=== PATIENT | male | born 1995 | race Caucasian/White ===

== ENCOUNTER 2017-03-19 23:51 | Emergency (ER) | payer OTHER ==
[2017-03-20 00:44] VITALS: TEMP 99.8; BMI 24.0
[2017-03-20] MEDS ORDERED: KETOROLAC TROMETHAMINE 15 MG/ML VIAL IM ONE (02:47)
[2017-03-20] MEDS ORDERED: KETOROLAC TROMETHAMINE 30 MG/1 ML VIAL ONE (02:58)
--- NOTE | 2017-03-20 03:28 | PDOC ---
History of Present Illness - General Chief Complaint: Sore Throat Stated Complaint: COLD SYMPTOMS Time Seen by Provider: 03/20/17 02:34 Past History - Past Medical History Allergies/Adverse Reactions: Allergies Allergy/AdvReac Type Severity Reaction Status Date / Time No Known Allergies Allergy Verified 03/20/17 00:40 Home Medications: Ambulatory Orders Amoxicillin - [Amoxicillin 875mg Tablet -] 875 mg PO BID #14 tab 03/20/17 - Suicide/Smoking/Psychosocial Hx Smoking History: Never smoked Have you smoked in the past 12 months: No Information on smoking cessation initiated: No Hx Alcohol Use: No Drug/Substance Use Hx: No *Physical Exam - Vital Signs Last Vital Signs Temp Pulse Resp BP Pulse Ox 99.8 F H 102 H 14 135/89 95 03/20/17 00:40 03/20/17 00:40 03/20/17 00:40 03/20/17 00:40 03/20/17 00:40 ED Treatment Course - LABORATORY CBC & Chemistry Diagram: 03/20/17 04:23 03/20/17 04:23 - Medications Given in the ED: ED Medications Discontinued Medications Generic Name Dose Route Start Last Admin Trade Name Freq PRN Reason Stop Dose Admin Ketorolac Tromethamine 30 mg 03/20/17 02:47 03/20/17 03:02 Toradol Injection - IM 03/20/17 02:48 30 mg ONCE ONE Administration Medical Decision Making - Medical Decision Making 03/20/17 06:56 21-year-old male with a history of recurrent strep pharyngitis presents with strep pharyngitis. Rapid strep is positive. Patient given Toradol and amoxicillin. Upon rechecking the vitals for discharge, the patient stood up and reported feeling lightheaded. His blood pressure at the time was found to be 67/ 44, heart rate 98 and afebrile. An IV was placed immediately in the patient was given fluids and labs and blood cultures were checked. Labs remarkable for a white count of 19, likely due to strep throat. Chest x-ray was clear on my read. Blood cultures are still pending. After 1.5 L of fluid the patient's vitals at rest and while ambulating are within normal limits with repeated blood pressure reads greater than the 110s systolic. The patient reports feeling much better. Encouraged to stay hydrated, follow-up with Dr. Briones as soon as possible and see his primary doctor within 1-2 days. I discussed the physical exam findings, ancillary test results and final diagnoses with the patient. I answered all of the patient's questions. The patient was satisfied with the care received and felt comfortable with the discharge plan and treatment plan. The patient will call their primary care physician within 24 hours to arrange follow-up and will return to the Emergency Department with any new, persistent or worsening symptoms. *DC/Admit/Observation/Transfer Diagnosis at time of Disposition: Strep pharyngitis - Discharge Dispostion Disposition: HOME Condition at time of disposition: Stable Admit: No - Prescriptions Prescriptions: Amoxicillin - [Amoxicillin 875mg Tablet -] 875 mg PO BID #14 tab - Referrals Referrals: Mike Parsons [Primary Care Provider] - Alan Briones MD [Staff Physician] - - Patient Instructions Printed Discharge Instructions: DI for Strep Throat Additional Instructions: Take your antibiotics as prescribed. You can take ibuprofen 600mg every 6 hours for pain and inflammation. Call Dr. Briones's office for follow up with the content specialist within 1 week. Follow up with your primary care doctor within 1-2 days. Return to the emergency department if you have any new, worsening or concerning symptoms. - Post Discharge Activity - Attestations Physician Attestion: 03/20/17 07:00 I, Dr. Joaquim Marie MD, attest that this document has been prepared under my direction and personally reviewed by me in its entirety. I further attest, that it accurately reflects all work, treatment, procedures and medical decision -making performed by me.
[2017-03-20] MEDS ORDERED: AMOXICILLIN 500 MG CAPSULE (FP) PO ONE (03:47)
[2017-03-20] MEDS ORDERED: SODIUM CHLORIDE 0.9% 500 ML INFUS.BAG IV ONE (03:57)
[2017-03-20] MEDS ORDERED: AMOXICILLIN 500 MG CAPSULE (FP) ONE (04:26)
[2017-03-20 04:38] LABS: BASOPHIL 0.2 % (0-2.0); EOSINOPHIL 0.3 % (0-4.5); MCH 29.1 pg (25.7-33.7); MCHC 33.2 g/dl (32.0-35.9); MEAN CELL VOLUME 87.6 fl (80-96); MEAN PLT VOLUME 9.3 fl (7.5-11.1); NEUTROPHILS 85.4 % (42.8-82.8); PLATELET COUNT 199 K/MM3 (134-434); RDW 13.2 % (11.9-15.9)
[2017-03-20 05:19] LABS: ALBUMIN 3.9 g/dl (3.4-5.0); ALK PHOS 92 U/L (45-117); ANION GAP 6 (8-16); BILIRUBIN,TOTAL 0.7 mg/dL (0.2-1.0); CALCIUM 8.3 mg/dL (8.5-10.1); CO2 28 mmol/L (21-32); CREATININE 1.4 mg/dL (0.7-1.3); GLUCOSE,RANDOM 112 mg/dL (74-106); SGOT/AST 86 U/L (15-37); SGPT/ALT 66 U/L (12-78); TOT PROT 7.6 g/dl (6.4-8.2)
[2017-03-20 06:52] VITALS: BP 134/68; PULSE 76
== END 2017-03-20 07:18 | disposition home or self-care (01) ==
LOC: JER 23:51
PROC: 3E0233Z Introduction of Anti-inflammatory into Muscle, Percutaneous Approach (ICD-10-PCS; principal; 2017-03-19)
PROC: 3E0337Z Introduction of Electrolytic and Water Balance Substance into Peripheral Vein, Percutaneous Approach (ICD-10-PCS; 2017-03-19)
DX: J02.0 Streptococcal pharyngitis (principal)
CPT/HCPCS: 36415; 71020-TC; 80053; 83605; 85025; 87040; 87070; 87430; 96360; 96372; 99281-25; 99282-25

== ENCOUNTER 2017-05-15 09:44 | Emergency (ER) | payer OTHER ==
[2017-05-15 10:17] VITALS: BP 108/71; PULSE 87; TEMP 97.8; BMI 22.9
[2017-05-15] MEDS ORDERED: KETOROLAC TROMETHAMINE 60 MG/2 ML VIAL IM ONE (10:44)
[2017-05-15] MEDS ORDERED: KETOROLAC TROMETHAMINE 60 MG/2 ML VIAL ONE (10:48)
--- NOTE | 2017-05-15 10:58 | PDOC ---
History of Present Illness - General Chief Complaint: Pain, Acute Stated Complaint: NAUSEA/VOMITING, FEVER, SORE THROAT Time Seen by Provider: 05/15/17 10:30 History Source: Patient Exam Limitations: No Limitations - History of Present Illness Initial Comments: CHIEF COMPLAINT: 21 y/o afebrile male c/o fever, sore throat and vomiting since last night. HISTORY OF PRESENT ILLNESS: The patient admits these symptoms happen frequently to him and normally it's strep throat. He states he has seen an ENT that is giving him a vaccine? to prevent strep throat in the future. He states he took tylenol and motrin last night but nothing this morning. He can swallow liquids but not solids because of throat pain. He denies abdominal pain. Vital signs on arrival are within normal limits REVIEW OF SYSTEMS: GENERAL/CONSTITUTIONAL: + fever/chills. No weakness. No weight change. HEAD, EYES, EARS, NOSE AND THROAT: No change in vision. No ear pain or discharge. + sore throat. GASTROINTESTINAL: +vomiting. No diarrhea, abdominal pain. GENITOURINARY: No dysuria, frequency, or change in urination. MUSCULOSKELETAL: No joint or muscle swelling or pain. No neck or back pain. SKIN: No rash or easy bruising. PHYSICAL EXAM: GENERAL: The patient is awake, alert, and fully oriented, in no acute distress. HEAD: Normal with no signs of trauma. NECK: Tender anterior cervical lymphadenopathy. ENT: Pupils equal, round and reactive to light, extraocular movements intact, sclera anicteric, conjunctiva clear. 1+ erythematous tonsils without exudate. Uvula midline. No soft/hard palate deformities. No hot potato voice. LUNGS: Clear to auscultation bilaterally. Normal excursion. No respiratory distress or use of accessory muscles. CV: RRR, S1/S2, no MRG. Cap refill < 2 sec. ABDOMEN: Soft, non-distended, non-tender even to deep palpation, no hepatomegaly or splenomegaly, no masses. EXTREMITIES: Normal range of motion, no edema. NEUROLOGICAL: Normal speech, normal gait. CN II-XII grossly intact. SKIN: Warm, dry, normal turgor, no rashes or lesions noted. Past History - Past Medical History Allergies/Adverse Reactions: Allergies Allergy/AdvReac Type Severity Reaction Status Date / Time No Known Allergies Allergy Verified 05/15/17 10:14 Home Medications: Ambulatory Orders Amoxicillin - [Amoxicillin 875mg Tablet -] 875 mg PO BID #14 tab 03/20/17 COPD: No Other medical history: DENIES - Immunization History Immunization Up to Date: Yes - Suicide/Smoking/Psychosocial Hx Smoking History: Never smoked Have you smoked in the past 12 months: No Information on smoking cessation initiated: No Hx Alcohol Use: No Drug/Substance Use Hx: No Substance Use Type: None *Physical Exam - Vital Signs Last Vital Signs Temp Pulse Resp BP Pulse Ox 97.8 F 87 16 108/71 99 05/15/17 10:14 05/15/17 10:14 05/15/17 10:14 05/15/17 10:14 05/15/17 10:14 Medical Decision Making - Medical Decision Making A/P: 21 y/o male with symptoms of strep throat. Plan is as follows: 1. Rapid strep 2. IM toradol Rapid strep - negative Offered the patient IM decadron but he refused. Explained the results to the patient and plan for discharge with supportive care instructions. Instructed him to return to the ER with any worsening or concerning symptoms. The patient verbalizes understanding of all instructions, has no further questions and is awaiting discharge. *DC/Admit/Observation/Transfer Diagnosis at time of Disposition: Pharyngitis Qualifiers: Pharyngitis/tonsillitis etiology: unspecified etiology Qualified Code(s): J02.9 - Acute pharyngitis, unspecified - Discharge Dispostion Disposition: HOME Condition at time of disposition: Good - Referrals Referrals: Mike Parsons [Primary Care Provider] - Call tomorrow - Patient Instructions Printed Discharge Instructions: DI for Viral Pharyngitis Additional Instructions: Discharge Instructions: -Your strep swab was negative; you have viral pharyngitis -take Tylenol and Motrin for pain and fever -Drink lots of fluids -Gargle with warm salt water -Eat soft/cold foods -Throw away your toothbrush once you feel better -Return to the ER with any worsening or concerning symptoms . - Post Discharge Activity Forms/Work/School Notes: Back to Work
[2017-05-15] MEDS ORDERED: DEXAMETHASONE SOD PHOSPHATE 10 MG/1 ML VIAL IM ONE (11:12)
[2017-05-15] MEDS ORDERED: DEXAMETHASONE SOD PHOSPHATE 10 MG/1 ML VIAL ONE (11:23)
--- NOTE | 2017-05-17 19:25 | PDOC ---
Patient Follow-up (Call Back) - Post ED Follow - Up Condition at time of discharge: Good Disposition at time of original discharge: HOME Reason for Call Back: Abnwl. Microbiology (Patient throat culture is strep group a, I have called patient to make him aware he reports that he is currently at [facility] because his condition worsened, he was able to speak full sentences he reports that he is currently under the care of a doctor and receiving treatment)
== END 2017-05-15 12:00 | disposition home or self-care (01) ==
LOC: JER 09:44
DX: J02.9 Acute pharyngitis, unspecified (principal)
CPT/HCPCS: 87070; 87077; 87430; 99282-25